=== PATIENT | male | born 1945 | race Caucasian/White ===

== ENCOUNTER 2021-05-18 09:55 | Day surgery (SDC) | payer OTHER ==
[2021-05-13 12:08] VITALS: BMI 32.3
[2021-05-18 11:53] VITALS: TEMP 98.1
[2021-05-18 12:23] VITALS: BP 114/65; PULSE 78
== END 2021-05-18 12:25 | disposition home or self-care (01) ==
LOC: FASU-ENDO 09:55
PROVIDERS: ATTEND Internal Medicine Gastroenterology
PROC: 0DBN8ZX Excision of Sigmoid Colon, Via Natural or Artificial Opening Endoscopic, Diagnostic (ICD-10-PCS; principal; 2021-05-18 11:09)
DX: K63.5 Polyp of colon (principal); K57.30 Diverticulosis of large intestine without perforation or abscess without bleeding; K64.2 Third degree hemorrhoids; K64.4 Residual hemorrhoidal skin tags; K64.8 Other hemorrhoids
CPT/HCPCS: 82962; 88305-TC

== ENCOUNTER 2021-10-15 07:57 | Day surgery (SDC) | payer OTHER ==
[2021-10-08 10:20] VITALS: BMI 31.6
[2021-10-15 10:08] VITALS: TEMP 96.6
[2021-10-15 10:10] VITALS: BP 129/83; PULSE 86
== END 2021-10-15 10:26 | disposition home or self-care (01) ==
LOC: FASU-ENDO 07:57
PROVIDERS: ATTEND Internal Medicine Gastroenterology
PROC: 0DJ08ZZ Inspection of Upper Intestinal Tract, Via Natural or Artificial Opening Endoscopic (ICD-10-PCS; principal; 2021-10-15 09:36)
DX: R13.10 Dysphagia, unspecified (principal)
CPT/HCPCS: 82962

== ENCOUNTER 2021-10-22 07:20 | Day surgery (SDC) | payer OTHER ==
[2021-10-20 14:08] VITALS: BMI 31.6
[2021-10-22] MEDS ORDERED: PROPOFOL 20 ML ONE ×2 (08:10)
[2021-10-22] MEDS ORDERED: LIDOCAINE HCL/PF 2% SDV 5ML VIAL ONE (08:10)
[2021-10-22 08:54] VITALS: TEMP 97.3
[2021-10-22 09:03] VITALS: BP 126/75; PULSE 75
== END 2021-10-22 10:04 | disposition home or self-care (01) ==
LOC: FASU-ENDO 07:20
PROVIDERS: ATTEND Internal Medicine Gastroenterology
PROC: 0DB68ZX Excision of Stomach, Via Natural or Artificial Opening Endoscopic, Diagnostic (ICD-10-PCS; 2021-10-22)
PROC: 0DB48ZX Excision of Esophagogastric Junction, Via Natural or Artificial Opening Endoscopic, Diagnostic (ICD-10-PCS; 2021-10-22)
PROC: 0DB98ZX Excision of Duodenum, Via Natural or Artificial Opening Endoscopic, Diagnostic (ICD-10-PCS; principal; 2021-10-22 08:15)
DX: K29.50 Unspecified chronic gastritis without bleeding (principal); K20.90 Esophagitis, unspecified without bleeding; R10.13 Epigastric pain
CPT/HCPCS: 82962; 88305-TC; 88342-TC